=== PATIENT | male | born 1950 | race Caucasian/White ===

== ENCOUNTER 2018-06-07 11:14 | Inpatient (IN) | payer MEDICARE ==
[~2018-06-07] VITALS: Ht 180.3 cm; Wt 119.4 kg
[~2018-06-07 11:14] MED LIST: BISA10S PR; CARV25 PO; Carbidopa-Levo1 EAC2 PO; DOCU100 PO; Docusate Sodiu1 EACH PO; ESOM20 PO; ESZO1 PO; FURO40 PO; HYDACE5 PO; HYDCOR2.5C TOP; LAMO100 PO; LEVFLO500 PO; LEVSOD100 PO; LEVSOD200 PO; LISI5 PO; METHYLPHENIDATE40 MG PO; METO25ER PO; METR500 PO; MIRALAX17 GM PO; MIRT30 PO; Naproxen250 MG PO; Norco 10-325 T1 EACH PO; OMEPRAZOLE MAGN20 MG PO; SIMV10 PO; Solaraze100 GM TOP; TRAZ50 PO; Trazodone HCl300 MG PO; VARE1 PO; ZESTORETIC 20-121 EA PO
[2018-06-07] MEDS ORDERED: PRAV20 PO (11:26)
[2018-06-07] MEDS ORDERED: PREG100 PO (11:26)
[2018-06-07] MEDS ORDERED: POTCHL10ER PO (11:27)
[2018-06-07] MEDS ORDERED: SPIR25 PO (11:27)
[2018-06-07] MEDS ORDERED: ENTRESTO 24 MG1 EACH PO (11:27)
[2018-06-07 12:03] LABS: BASOPHILS ABSOLUTE AUTO 0.06 K/mm3 (0.00-0.23); BASOPHILS PERCENT AUTO 0 % (0-2); EOSINOPHILS PERCENT AUTO 1 % (0-6); Hemoglobin 18.4 g/dL (13.5-17.5); IMMATURE GRAN ABSOLUTE AUTO 0.09 K/mm3 (0.00-0.10); IMMATURE GRAN PERCENT AUTO 1 % (0-1); LYMPHOCYTES ABSOLUTE AUTO 0.42 K/mm3 (0.84-5.20); LYMPHOCYTES PERCENT AUTO 3 % (21-46); MONOCYTES ABSOLUTE AUTO 0.81 K/mm3 (0.16-1.47); MONOCYTES PERCENT AUTO 6 % (4-13); Mean Corpuscular HGB 30.5 pg (26.0-34.0); Mean Corpuscular HGB Conc 31.3 g/dL (31.5-36.5); Mean Corpuscular Volume 98 fL (80-100); Mean Platelet Volume 12.2 fL (9.1-12.4); NEUTROPHILS ABSOLUTE AUTO 12.34 K/mm3 (1.96-9.15); NEUTROPHILS PERCENT AUTO 89 % (41-73); Platelet Count 295 K/mm3 (150-400); RDW Coefficient Variation 14.9 % (11.7-14.2); RDW Standard Deviation 54.2 fL (35.1-46.3); Red Blood Cell Count 6.03 M/mm3 (4.30-5.90); White Blood Cell Count 13.92 K/mm3 (4.00-11.30)
[2018-06-07 12:13] LABS: Hematocrit 58.8 % (37.0-53.0)
[2018-06-07 12:25] LABS: Magnesium, Blood 2.5 mg/dL (1.6-2.4); Troponin I <0.015 ng/mL (0.000-0.040)
[2018-06-07 12:31] LABS: Alanine Aminotransfer (ALT/SGP 23 U/L (12-78); Albumin, Blood 4.5 g/dL (3.4-5.0); Albumin/Globulin Ratio 0.8 (0.8-1.8); Alk Phos 148 U/L (50-136); Anion Gap 11 mmol/L (6-16); Aspartate Aminotrans (AST/SGOT 30 U/L (12-37); Bilirubin, Total 0.8 mg/dL (0.1-1.0); Blood Urea Nitrogen 49 mg/dL (8-24); Bun/Creatinine Ratio 17.3 (12.0-20.0); CO2, Blood 25 mmol/L (21-32); Calcium, Blood 10.2 mg/dL (8.5-10.1); Chloride, Blood 98 mmol/L (98-108); Creatinine, Blood 2.83 mg/dL (0.60-1.20); Globulin, Blood 5.5 g/dL (2.2-4.0); Glomerular Filtration Rate 24 (60-); Glucose, Blood 148 mg/dL (70-99); Potassium, Blood 6.7 mmol/L (3.5-5.5); Sodium, Blood 134 mmol/L (136-145)
[2018-06-07] MEDS ORDERED: LO-DOSE ASPIRIN81 MG PO (12:49)
[2018-06-07] MEDS ORDERED: METHYLPHENIDATE PO (12:50)
[2018-06-07] MEDS ORDERED: GUAI600T33 PO (12:51)
[2018-06-07] MEDS ORDERED: Ferrous Sulfat325 MG PO (12:52)
[2018-06-07] MEDS ORDERED: CORTISONE60 GM TOP (12:57)
[2018-06-07 13:35] LABS: Bun/Creatinine Ratio 17.1 (12.0-20.0); Calcium, Blood 8.6 mg/dL (8.5-10.1); Creatinine, Blood 3.04 mg/dL (0.60-1.20); Potassium, Blood 5.4 mmol/L (3.5-5.5)
--- NOTE | 2018-06-07 17:00 | NUR ---
INITIAL ASSESSMENT PATIENT ARRIVED FROM ER AT 1632. PATIENT SPEECH IS GARBLED. PATIENT IS DISORIENTED AT TIMES. IN THE ROOM AND STATED PATIENT HAS BEEN DISORIENTED FOR 2-3 MONTHS. PATIENT HAS PRODUCTIVE COUGH, COUGHING UP THICK WHITE SECRETIONS THAT WERE SUCTIONED FROM MOUTH. PATIENT HAS WHEEZES THROUGHOUT ALL LUNG TOMAS. PATIENT IS SATTING 90% OR GREATER ON 2 L NC. PATIENT IN SINUS TACH. HR IN THE 90S-100S. HYPOTENSIVE WITH SBP IN THE 70S. PATIENT HAS NG TO LEFT NARE IN PLACE SET TO LOW INTERMITTENT SUCTION WITH LIGHT BROWN DRAINAGE. PATIENT ABDOMEN IS MODERATELY DISTENDED WITH TENDERNESS ON PALPATION BUT IS SOFT. PATIENT HAS AN UMBILICAL HERNIA. LYLES IN PLACE DRAINING MINIMAL CLOUDY YELLOW URINE. SKIN IS C/D/I BUT LOWER FEET ARE PALE AND COLD TO THE TOUCH. PATIENT HAS A 20 G TO THE L HAND, AND AN 18 G IN THE RIGHT UPPER ARM. NS IS INFUSING AT 50 ML/HR. BED LOW. CALL LIGHT IN REACH. WILL CONTINUE TO MONITOR.
[2018-06-07 17:04] LABS: Source, Urine Catheter
[2018-06-07 17:20] LABS: Appearance, Urine Hazy (Clear); Blood, Urine Neg (Neg); Color, Urine Yellow (P-Yellow); Glucose Qualitative, Urine Neg (Neg); Ketones, Urine Neg (Neg); Leukocyte Esterase, Urine Neg (Neg); Nitrite, Urine Neg (Neg); Protein, Urine 3+ (Neg); Specific Gravity, Urine 1.025 (1.003-1.022); Urobilinogen, Urine NORM (Normal)
--- NOTE | 2018-06-07 17:20 | NUR ---
CALLED DR. LOPES TO INFORM OF PATIENT'S AUDITORY WHEEZES AND SBP IN THE 60S TO 70S. ORDERS RECEIVED. WILL NOT GIVE NS BOLUS THAT IS ORDERED AND WILL BEGIN NS AT 50 MLS/ HOUR PER TELEPHONE ORDER. ALSO ORDERED TO CONSULT DEPOSITING MACHINE OPERATOR FOR HYPOTENSION. 1729: DR. CASILLAS CALLED AND INFORMED OF CONSULT. INFORMED THAT PATIENT HAS EF OF 33 AND CHF PER EX . INFORMED THAT PATIENT'S SBP 60S TO 70S. INFORMED THAT PATIENT HAS WHEEZES THROUGHOUT. INFORMED THAT DR. LOPES STATED NOT TO GET ANOTHER NS BOLUS RECEIVED 4 L IN ER AND TO INFUSE NS AT RATE OF 50 MLS/ HOUR. ORDERS OBTAINED. DR. CASILLAS STATED SHE WOULD BE IN SHORTLY.
[2018-06-07 17:30] LABS: Bilirubin, Urine 2+ (Neg)
[2018-06-07 17:32] LABS: Bacteria Not Seen /hpf; Red Blood Cells, Urine Not Seen /hpf (0-2); Squamous Epithelial Cells Rare /hpf (Few); White Blood Cells, Urine Not Seen /hpf (0-5)
[2018-06-07 17:49] LABS: PCO2 Arterial 47.6 mmHg (35-45); PO2 Arterial 70.7 mmHg (80-100); pH Blood Arterial 7.32 (7.35-7.45)
--- NOTE | 2018-06-07 19:00 | NUR ---
ASSUMED CARE PT IS ORIENTED TO SELF, PLACE, AND DATE; FOLLOWS COMMANDS. HOWEVER, IS QUITE CONFUSED. STATES THAT HE HAS BEEN CONFUSED FOR 3 MONTHS NOW. BLOOD PRESSURE IS NOT GREAT WILL NEED TO ADDRESS. PT IS ON NC 4L WITH SPO2>90.
--- NOTE | 2018-06-07 19:07 | NUR ---
SHIFT SUMMARY PATIENT IS RESTING IN BED. PATIENT CONTINUES TO BE CONFUSED AND DISORIENTED AT TIMES. PATIENT IS AFEBRILE. PATIENT IS SATTING 90% OR GREATER ON 2 L NC. NSR W HR IN THE 90S. SBP IS IN THE 80S. PATIENT HAS NG TUBE IN PLACE TO LIS WITH LIGHT BROWN DRAINAGE. ABDOMEN IS SOFT, BUT MODERATELY DISTENDED AND TENDER TO PALPATION. PATIENT HAS AN UMBILICAL HERNIA. LYLES IN PLACE DRAINING MINIMAL AMOUNT OF CLOUDY YELLOW URINE. DR CASILLAS IS AWARE. PATIENT HAS COOL AND PALE LOWER EXTREMITIES BUT SKIN IS OTHERWISE C/D/I. NS IS INFUSING AT 50 ML/HR. PATIENT HAS A PICC LINE PLACED TO THE RIGHT UPPER ARM. DR MENENDEZ HAS BEEN CONSULTED AND STATED HE WILL BE IN AM. REPORT HAS BEEN GIVEN TO ASSUMING HEALTHCARE SCIENCE SPECIALIST NURSE. NO SIGNS OF PAIN AT THIS TIME. BED LOW. CALL LIGHT IN REACH.
[2018-06-08 04:08] LABS: BASOPHILS ABSOLUTE AUTO 0.02 K/mm3 (0.00-0.23); BASOPHILS PERCENT AUTO 0 % (0-2); EOSINOPHILS ABSOLUTE AUTO 0.01 K/mm3 (0.00-0.68); EOSINOPHILS PERCENT AUTO 0 % (0-6); Hematocrit 39.8 % (37.0-53.0); Hemoglobin 12.4 g/dL (13.5-17.5); IMMATURE GRAN ABSOLUTE AUTO 0.04 K/mm3 (0.00-0.10); IMMATURE GRAN PERCENT AUTO 1 % (0-1); LYMPHOCYTES ABSOLUTE AUTO 0.45 K/mm3 (0.84-5.20); LYMPHOCYTES PERCENT AUTO 5 % (21-46); MONOCYTES PERCENT AUTO 2 % (4-13); Mean Corpuscular HGB 30.5 pg (26.0-34.0); Mean Corpuscular HGB Conc 31.2 g/dL (31.5-36.5); Mean Corpuscular Volume 98 fL (80-100); Mean Platelet Volume 12.5 fL (9.1-12.4); NEUTROPHILS ABSOLUTE AUTO 7.97 K/mm3 (1.96-9.15); NEUTROPHILS PERCENT AUTO 92 % (41-73); Platelet Count 158 K/mm3 (150-400); RDW Coefficient Variation 14.9 % (11.7-14.2); RDW Standard Deviation 53.2 fL (35.1-46.3); Red Blood Cell Count 4.07 M/mm3 (4.30-5.90); White Blood Cell Count 8.69 K/mm3 (4.00-11.30)
[2018-06-08 04:23] LABS: Bun/Creatinine Ratio 21.7 (12.0-20.0); Calcium, Blood 7.2 mg/dL (8.5-10.1); Creatinine, Blood 2.53 mg/dL (0.60-1.20); Potassium, Blood 4.6 mmol/L (3.5-5.5)
--- NOTE | 2018-06-08 06:54 | NUR ---
SHIFT SUMMARY PT IS ON 4LNC AND SATTING >90%. PT IS ORIENTED TO SELF, PLACE, AND DATE BUT IS DEFINITELY CONFUSED. EXWIADELAIDA SAYS THAT PT HAS BEEN CONFUSED FOR 3 MONTHS. PT WAS STARTED ON LEVOPHED OVERNIGHT TO MAINTAIN MAP>60 AND IS CURRENTLY AT 1MCG/MIN. NS X 2 TKO. PT HAD 350ML BROWN DRAINAGE FROM NG. PT CONFINUELY COMPLAINS ABOUT HUNGER AND THIRST.
--- NOTE | 2018-06-08 08:53 | NUR ---
INITIAL ASSESSMENT PATIENT IS LAYING IN BED. PATIENT IS LETHARGIC, AND RESPONDS TO VERBAL STIMULI; SLEEPING ON AND OFF BETWEEN QUESTIONS. SPEECH IS GARBLED. CONTINUES TO ASK FOR FOOD AND WATER. PATIENT IS AFEBRILE. PATIENT IS SATTING 90% OR GREATER ON 4 L NC. PATIENT WAS GIVEN A NEB TREATMENT BY RT THIS AM, BUT CONTINUED TO HAVE WHEEZES T/O LUNG TOMAS. DR CASILLAS INFORMED. NSR, SINUS TACH W HR IN THE 90S-LOW 100S. BP IS STABLE AT THIS TIME. ABDOMEN IS MODERATELY DISTENDED, WITH SOME TENDERNESS BUT IS SOFT ON PALPATION. PATIENT HAS AN UMBILICAL HERNIA. NG TUBE TO LEFT NARE IN PLACE SET TO LIS WITH LIGHT BROWN DRAINAGE. LYLES IN PLACE DRAINING CLEAR YELLOW URINE. APPEARS TO HAVE ADEQUATE URINE OUTPUT AT THIS TIME. SKIN IS C/D/I BUT HAS COOL, DUSKY LOWER EXTREMITIES. NS INFUSING TKO X2. LEVOPHED ON SB. PATIENT RECEIVING ANTIBIOTICS. BED LOW, CALL LIGHT IN REACH. WILL CONTINUE TO MONITOR.
--- NOTE | 2018-06-08 11:21 | NUR ---
DR. MENENDEZ IN ROOM TO SEE PATIENT. STATED TO CONTINUE TO MONITOR. STATES THAT IF PATIENT HAS BM THEN DC NG TUBE AND LET HIM KNOW. OTHERWISE, HE WILL REASSESS IN AM.
--- NOTE | 2018-06-08 12:16 | NUR ---
PATIENT SLEEPING IN BED. NO SIGNS OF PAIN. AFEBRILE. VSS. ABLE TO TITRATE O2 TO 3 L NC FROM 4. PATIENT SATTING 90% OR GREATER ON THIS. PATIENT RECEIVED BED BATH. NO OTHER ACUTE CHANGES TO NOTE ON AT THIS TIME. BED LOW, CALL LIGHT IN REACH. WILL CONTINUE TO MONITOR.
--- NOTE | 2018-06-08 17:14 | NUR ---
PATIENT BECAME VERY AGITATED DURING ASSESSMENT. PATIENT WAS BEING VERBALLY ABUSIVE TO STAFF AND CONTINUED TO ASK FOR WATER DURING ASSESSMENT DESPITE RECEIVING MANY WATER SWABS PRIOR TO ASSESSMENT ATTEMPT. PATIENT WAS TOLD WATER SWABS WOULD BE PROVIDED AGAIN AFTER ASSESSMENT. PATIENT CONTINUED TO SHOW AGITATION AND THREATENED TO REMOVE TUBES IF HE DID NOT GET WATER. PATIENT STATED HE WANTED TO LEAVE AMA AND WANTED HIS EX TO BE CALLED. PATIENT EX WAS CONTACTED AND INFORMED OF PATIENT DESIRE TO LEAVE AMA AND REQUESTING FOR HER TO COME AND PICK HIM UP. EX STATED SHE WOULD BE ON HER WAY NOW. PATIENT INFORMED THAT EX ON WAY. DR LOPES CONTACTED AND INFORMED OF PATIENT WANTING TO LEAVE AMA. STATED SHE WOULD ORDER PRN ATIVAN. PATIENT OFFERED ATIVAN. PATIENT REFUSED AND CONTINUES TO CURSE AT STAFF AND CALL NAMES. WAITING FOR TO ARRIVE.
--- NOTE | 2018-06-08 18:31 | NUR ---
SHIFT SUMMARY PATIENT RESTING QUIETLY IN BED AT THIS TIME. EX IS AT THE BEDSIDE. PATIENT HAS EXPIRATORY WHEEZES T/O. PATIENT IS SATTING 90% OR GREATER ON 3 L NC. PATIENT CONTINUES TO BE IN SINUS RHYTHM/SINUS TACH W HR IN THE 90S-LOW 100S. BP IS STABLE. ABDOMEN IS DISTENDED, BUT SOFT TO PALPATION. PATIENT HAS UMBILICAL HERNIA. NG TUBE TO L NARE IN PLACE SET TO LIS, WITH LIGHT BROWN DRAINAGE. LYLES IN PLACE DRAINING DARK YELLOW URINE WITH SOME SEDIMENT. PATIENT LOWER EXTREMITIES ARE PALE, COOL, AND DUSKY. PATIENT RECEIVED BED BATH TODAY. NS TKO. LEVOPHED HAS BEEN OFF SINCE THE AM. PATIENT MOSTLY CALM, AND COOPERATIVE AT THIS TIME. EX CAME IN AND SPOKE TO PATIENT, WAS VERY AGITATED AND ANGRY. ABLE TO CALM DOWN SOME. PATIENT AGREED TO TAKE PRN ATIVAN. PATIENT REQUESTED TO BE ABLE TO HAVE ICE CUBES IF HE WAS GOING TO STAY IN HOSPITAL. DR. MENENDEZ WAS CONTACTED AND STATED ICE CUBES WERE OKAY IN SMALL QUANTITIES. PATIENT AND EX INFORMED OF DR. MENENDEZ'S REPLY, AND EX WAS INFORMED TO MINIMIZE AMOUNT OF INTAKE IMPORTANT IN ALLOWING PATIENT TO GET BETTER. WILL REPORT TO THE [facility] BAR FINISH OPERATOR NURSE. HAS NO OTHER COMPLAINTS AT THIS TIME. BED LOW, CALL LIGHT IN REACH.
--- NOTE | 2018-06-08 20:26 | NUR ---
CARE ASSUMED REPORT RECEIVED, CARE ASSUMED AT 1900. PT RESTING QUIETLY WITH EX-, MONALISA AT BEDSIDE. PT AROUSES EASILY FOR ASSESSMENT. PT CALM, COOPERATIVE. REQUESTING MULTIPLE SWABS AND ICE CHIPS. PROVIDED AND PT EDUCATED. PT AGREEABLE. DISCUSSED PLAN FOR EVENING WITH PATIENT AND MONALISA. MONALISA CONCERNED ABOUT LEAVING PATIENT FOR EVENING AND DISCUSSES WITH PATIENT. PT AGREES FOR MONALISA TO GO HOME AND PT STATES, "I WILL DO WAHT I NEED TO DO." PT REQUESTING ATIVAN, BUT SITTING WITH HIS EYES CLOSED AND QUICKLY FALLS ASLEEP BETWEEN ASSESSMENTS. EDUCATED PT AND STATED IT WOULD BE PROVIDED IF PT STARTS TO FEEL MORE AGITATED BUT AT THIS POINT APPEARS TO BE RESTING QUIETLY. PT AGREEABLE. WILL CONTINUE TO CLOSELY MONITOR. VITALS STABLE, SEE FLOWSHEET. SEE SHIFT ASSESSMENT. PT AGREES TO CALL FOR NEEDS. BED IN LOWEST POSITION, ALARM IN PLACE.
--- NOTE | 2018-06-08 20:44 | NUR ---
AGITATION PT SITTING UP IN BED, RESTLESS, CALLS OUT REQUESTING ATIVAN. PT CALM, COOPERATIVE AND APPRECIATIVE UPON ADMINISTRATION.
--- NOTE | 2018-06-08 22:33 | NUR ---
NEURO STATUS PT CONTINUES TO BE ORIENTED, BUT VERY FORGETFUL. CALLING OUT INTO HALLWAY, STATES, "I DON'T KNOW WHAT I'M DOING." YET IS ORIENTED TO SELF, PLACE, DATE/TIME AND EVENT. REQUESTING ICE REPEATEDLY, PROVIDED IN SMALL AMOUNTS. PER H&P, PT HAS SOME CONFUSION AT BASELINE. WILL CONTINUE TO MONITOR AND REDIRECT.
[2018-06-09 03:34] LABS: BASOPHILS ABSOLUTE AUTO 0.01 K/mm3 (0.00-0.23); BASOPHILS PERCENT AUTO 0 % (0-2); EOSINOPHILS ABSOLUTE AUTO 0.01 K/mm3 (0.00-0.68); EOSINOPHILS PERCENT AUTO 0 % (0-6); Hematocrit 44.4 % (37.0-53.0); Hemoglobin 13.9 g/dL (13.5-17.5); IMMATURE GRAN ABSOLUTE AUTO 0.05 K/mm3 (0.00-0.10); IMMATURE GRAN PERCENT AUTO 1 % (0-1); LYMPHOCYTES ABSOLUTE AUTO 0.77 K/mm3 (0.84-5.20); LYMPHOCYTES PERCENT AUTO 9 % (21-46); MONOCYTES ABSOLUTE AUTO 0.82 K/mm3 (0.16-1.47); MONOCYTES PERCENT AUTO 9 % (4-13); Mean Corpuscular HGB 30.5 pg (26.0-34.0); Mean Corpuscular HGB Conc 31.3 g/dL (31.5-36.5); Mean Corpuscular Volume 97 fL (80-100); NEUTROPHILS ABSOLUTE AUTO 7.15 K/mm3 (1.96-9.15); NEUTROPHILS PERCENT AUTO 81 % (41-73); Platelet Count 180 K/mm3 (150-400); RDW Coefficient Variation 14.8 % (11.7-14.2); RDW Standard Deviation 53.5 fL (35.1-46.3); Red Blood Cell Count 4.56 M/mm3 (4.30-5.90); White Blood Cell Count 8.81 K/mm3 (4.00-11.30)
[2018-06-09 03:50] LABS: Anion Gap 4 mmol/L (6-16); Blood Urea Nitrogen 42 mg/dL (8-24); Bun/Creatinine Ratio 22.2 (12.0-20.0); CO2, Blood 29 mmol/L (21-32); Calcium, Blood 8.5 mg/dL (8.5-10.1); Chloride, Blood 113 mmol/L (98-108); Creatinine, Blood 1.89 mg/dL (0.60-1.20); Glomerular Filtration Rate 38 (60-); Glucose, Blood 103 mg/dL (70-99); Phosphorus, Blood 2.8 mg/dL (2.5-4.9); Potassium, Blood 4.6 mmol/L (3.5-5.5); Sodium, Blood 146 mmol/L (136-145)
--- NOTE | 2018-06-09 06:16 | NUR ---
SUMMARY SINCE PREVIOUS NOTE, PT HAS RESTED INTERMITTENTLY, AROUSING EASILY FOR REASSESSMENTS. REMAINS ORIENTED, BUT FORGETFUL ABOUT RESTRICTIONS OF BOWEL OBSTRUCTION. PT ON TWO OCCASIONS HAS GONE FROM RESTING QUIETLY TO RAPIDLY PULLING AT CORDS/LINES, RIPPING OF CORDS AND IS PRISON OUT OF BED, YELLING "I AM GOING." PT REDIRECTABLE BACK TO BED, BUT CONTINUES TO YELL, "WATER, WATER." PROVIDED WITH SWABS/ICE CHIPS. MEDICATED WITH ATIVAN, SEE EMAR. VITALS STABLE, SLIGHT HYPERTENSION NOTED. HYDRALAZINE PRN ORDER RECEIVED FROM DR. RIVERA. PT HAS REQUIRED 3 LPM NASAL CANNULA TO MAINTAIN 02 SAT IN 90'S. NG REMAINS TO LIS WITH BROWN OUTPUT, SEE I/O. LYLES PATENT, DRAINING CLEAR, YELLOW URINE THROUGHOUT NIGHT. SON IN THIS MORNING, PROVIDED WITH UPDATE. PT MINIMALLY INTERACTIVE WITH SON, REPEATEDLY ASKING FOR WATER. SWABS AND ICE CHIPS PROVIDED.
--- NOTE | 2018-06-09 07:04 | NUR ---
REPORT TO KARTHIK HERNANDEZ TO ASSUME CARE
--- NOTE | 2018-06-09 10:18 | NUR ---
NG TUBE DR MENENDEZ HERE TO SEE PT. GAVE VERBAL ORDER TO CLAMP NG TUBE X6 HOURS. RETURN TO SUCTION IF PT BECOMES NAUSEIOUS OR AT 1500 TO CHECK RETAINED STOMACH VOLUME. CONTINUE POT.
--- NOTE | 2018-06-09 12:16 | NUR ---
ELEVATED BP CALLED D Danisha LOPES D/T PT ELEVATED BP. HYDRALAZINE 10MG ALREADY GIVEN X1. ORDER RECEIVED FOR LOPRESSOR IV. CONTINUE POT.
--- NOTE | 2018-06-09 13:56 | NUR ---
Mr. Macdonald was calling out in room "I want to go home!" I entered room in attempt to calm. He was quite fidgety and confused. He was unable to hold conversation or accept comfort/assurance. I will remain available.
--- NOTE | 2018-06-09 15:08 | NUR ---
NG TUBE RESUMED SUCTION AT [address] BALL ORDER. NG TUBE HAD BEEN LOCKED FOR 6 HOURS. SCANT OUTPT. WHAT DID COME THROUGH THE TUBE WAS COLORLESS. LEFT ON LIS. CONTINUE POT.
--- NOTE | 2018-06-09 17:20 | NUR ---
REMOVED NG TUBE ORDER RECEIVED FROM DR MARTINEZ TO REMOVE NG TUBE. CALLED DR LOPES TO REQUEST ORDERS FOR PT ROUTINE BP MEDICATIONS. CONFIRMED WITH PAHRMACY THAT WE CARRY THE ENTRESTO. WE DO. MESSAGE LEFT FOR DR VALLADARES, DISTRICT CLAIMS MANAGER, FOR DIET CLARIFICATION. CONTINUE POT.
--- NOTE | 2018-06-09 18:00 | NUR ---
RESTRAINT NOTE PT WAS MANAGED WELL BY HIS /SON. HE DOES NOT REDIRECT WELL. THEY LEFT AND PT STARTED TO PULL AT NG TUBE, OXYGEN AND PICC LINE. TRYING TO CLIMB OOB. DID NOT REDIRECT IN ANY WAY. OBSESSIVE BEHAVIOR FOR WATER. TAB ALARM HAD BEEN PLACED AROUND LUNCH TIME. ORDER RECEIVED TO PULL NG TUBE. NG TUB REMOVED. PT TOLERATED WELL. TOOK 2 NURSES TO REMOVE D/T PT NOT FOLLOWING DIRECTIONS. GAVE PT A GLASS OF WATER. HE GULPED IT DOWN AND START YELLING FOR WATER. HE THEN STARTED BELCHING AND HICCUPING. TALKED WITH PT AND TRIED TO CONVINVE HIM TO PACE HIMSELF. THOUGHT HE UNDERSTOOD. FOUND HIM SITTING BETWEEN THE RAILS AT THE FOOT OF THE BED, TAB ALARM HAD BEEN REMOVED, PULLING ON HIS PICC LINE BECAUSE IT WAS PREVENTING HIM FROM GETTING OOB D/T ZOSYN INFUSING. TRIED TO GET HIM TO MOVE BACK IN BED. HE REFUSED AND STARTED THREATENING AND YELLING. THREE NURSES THEN HELPED HIM RETURN TO BED AND PLACED A PROPERLY SIZED ESTELLA. ATIVAN 0.5MG GIVEN IV X1. DR LOPES CALLED FOR ESTELLA ORDER. PICC LINE SAFE AND FUNCTIONING WELL. CONTINUE POT.
--- NOTE | 2018-06-09 18:56 | NUR ---
AGGITATION PT STARTED TO ESCALATE AFTER SEEING DR PETERSON. STARTED GRABBING AND WRIPPING WIRES OFF. TRIED TO PULL THE PICC LINE AGAIN. APPLIED BILATERAL SOFT WRIST RESTRAINTS AND GAVE ADDITIONAL ATIVAN. CALLED PT MONALISA AGAIN. SHE IS SENDING THEIR SON OVER. CONTINUE POT.,
--- NOTE | 2018-06-09 22:00 | NUR ---
CARE ASSUMED REPORT RECEIVED, CARE ASSUMED AT 1900. AT CHANGE OF SHIFT PT AGITATED, YELLING OUT, ATTEMPTING TO GET OUT OF BED REPEATEDLY. UNABLE TO REDIRECT. BILAT SOFT WRISTS AND VEST RESTRAINTS IN PLACE. DURING REPORT, PT PULLED OUT OF SOFT WRIST RESTRAINTS. TOUGH CUFFS PLACED. PT'S SON CALLED BY DAY SHIFT RN AND AT BEDSIDE. EDUCATED AND AGREEABLE TO PLAN. PT MEDICATED WITH HALDOL. PT REQUESTING WATER REPEATEDLY, GIVEN SIPS OF WATER PER CLEAR LIQUID DIET ORDERS. PT ORIENTED TO SELF AND LOCATION BUT EXTREMELY FORGETFUL, PART OF WHICH IS CAUSING THE AGITATION. PT CALMED DOWN AFTER HALDOL ADMINISTRATION AND REQUESTED WRIST RESTRAINTS TO BE TAKEN OFF. REMOVED TOUGH CUFFS AND LEFT VEST IN PLACE. PT TOLERATING WELL AND FOLLOWING DIRECTIONS. CONTINUES TO BE FORGETFUL BUT IS REDIRECTIBLE. VITALS STABLE, SEE FLOWSHEET. SEE SHIFT ASSESSMENT.
--- NOTE | 2018-06-10 | NUR ---
UPDATE SINCE PREVIOUS NOTE, PT HAS REQUIRED NURSE AT BEDSIDE THE MAJORITY OF THE TIME TO KEEP OXYGEN PROBE, HEART MONITOR, AND IV'S IN PLACE. PT MEDICATED WITH ATIVAN. DR. RIVERA UPDATED AND AGREEABLE TO HALDOL PRN ORDER. HALDOL ADMIN. VITALS CONTINUE TO BE STABLE. PT CONTINUES TO BE ABLE TO STATE LOCATION, NAME AND FOLLOW DIRECTIONS BUT IS EXTREMELY FORGETFUL, YELLS OUT, ATTEMPTS TO GET OUT OF BED AND PULL ALL EQUIPMENT OFF. PT REDIRECTIBLE BUT ONLY REMEMBERS INSTRUCTIONS FOR MAXIMUM 30 SECONDS. REMAINS IN ESTELLA VEST.
--- NOTE | 2018-06-10 03:00 | NUR ---
UPDATE PT HAS CONTINUED WITH PREVIOUS TREND OF AGITATION, ATTEMPTING TO GET OUT OF BED, PULLING AT LINES/TUBES. STAFF AT BEDSIDE TO PREVENT PATIENT HARM MAJORITY OF TIME SINCE PREVIOUS NOTE. PT ALSO NOTED TO BE SWEATY AND EVEN LESS REDIRECTIBLE THAN PRIOR. DR. RIVERA UPDATED. NEW ORDER FOR PRECEDEX. PRECEDEX INITIATED. VITALS CONTINUE TO BE STABLE.
[2018-06-10 04:35] LABS: Bun/Creatinine Ratio 23.5 (12.0-20.0); Calcium, Blood 9.1 mg/dL (8.5-10.1); Creatinine, Blood 1.53 mg/dL (0.60-1.20); Potassium, Blood 4.6 mmol/L (3.5-5.5)
--- NOTE | 2018-06-10 05:00 | NUR ---
UPDATE PT HAS PROGRESSIVELY BECOME MORE AGITATED, YELLING, PULLING EQUIPMENT OFF, PULLING AT PICC LINE, NEARLY COMPLETELY OUT OF ESTELLA ON MULTIPLE OCCASIONS. WHEN ATTEMPTING TO REDIRECT PT ESCALATES AND CONTINUES WITH ACTIVITIES. REQUIRES PHYSICAL RESTRAINT OF HANDS TO PREVENT PATIENT HARM. BILAT WRIST RESTRAINTS PLACED. TOUGH CUFFS PLACED PT HAD BEEN ABLE TO GET OUT OF SOFT RESTRAINTS PREVIOUSLY IN THE NIGHT.
--- NOTE | 2018-06-10 06:45 | NUR ---
FAMILY UPDATED PT'S SON TO BEDSIDE FOR UPDATE ON PT. UPDATE PROVIDED AND PT'S SON AGREEABLE TO PLAN AND PLANS TO UPDATE PT'S SIGNFICANT CAROL. MAYA
--- NOTE | 2018-06-10 07:10 | NUR ---
REPORT TO KARTHIK GARCIA TO ASSUME CARE
--- NOTE | 2018-06-10 07:18 | NUR ---
SUMMARY SINCE PREVIOUS NOTE, PT REMAINED AGITATED AND HAD LEGS COMPLETELY OUT OF BED, PUSHING ON SIDE RAIL WITH LEGS, PULLING LYLES CATHETER WITH TOES, AND YELLING OUT. UNABLE TO REDIRECT. MEDICATED WITH HALDOL AND PT HAS SLEPT SINCE. OTHERWISE, ASSESSMENTS UNCHANGED. GOOD URINE OUTPUT THROUGH LYLES. NO BOWEL MOVEMENT NOTED, BOWEL SOUNDS REMAIN HYPOACTIVE. PT HAS NOT ASKED FOR WATER SINCE APPROX 2200. VITALS STABLE, DID REQUIRE 1 LPM NASAL CANNULA WHEN SLEEPING THIS MORNING.
--- NOTE | 2018-06-10 08:57 | NUR ---
ASSUMED CARE: REPORT RECEIVED FROM GIDEON Raman RN. ASSUMED CARE OF THIS PT AT APPROX 0700. ON ASSESSMENT, THE PT IS RESTING QUIETLY. ESTELLA VEST & BILAT TOUGH CUFF LOCKED WRIST RESTRAINTS IN PLACE. PRECEDEX IS INFUSING FOR CONTINUED AGITATION WHEN PT AWAKE. ONCE AWAKE, THE PT IS PULLING AT RESTRAINTS & AGITATED. HE ASKS "WHO TIED ME UP" & "CAN YOU UNTIE ME." SAFETY REASONS FOR RESTRAINTS ARE DISCUSSED & PT IS AGREEABLE TO THIS RATIONALE FOR A TIME BEFORE BECOMING FORGETFUL & ASKING THE SAME QUESTIONS AGAIN. HE IS ORIENTED TO HIMSELF & FOLLOWING COMMANDS ONLY. CIWA CHARTED. WILL CONTINUE TO MONITOR & UPDATE NEEDED.
--- NOTE | 2018-06-10 10:30 | NUR ---
DR. LOPES: PROVIDER AT BEDSIDE TO SEE PT. SHE STS SHE WILL ORDER NEBS PRN THE PT HAS AUDIBLE WHEEZING. PT STS HE SMOKES APPROX 1 PPD. NO OTHER ORDERS AT THIS TIME. WILL CONTINUE TO MONITOR & UPDATE NEEDED.
--- NOTE | 2018-06-10 18:49 | NUR ---
SHIFT SUMMARY: NO ACUTE CHANGES SINCE AM ASSESSMENT. PT REMAINS FORGETFUL & CONFUSED, IS A&O TO SELF, FAMILY & FOLLOWING COMMANDS. FAMILY STS THAT HIS FORGETFULNESS HAS BEEN INCREASING FOR 2-3 MONTHS & THAT THEY HAVE BEEN CONCERNED W/ HIS ABILITY TO CARE FOR HIMSELF AT HOME. LS HAVE OCCASIONAL EXP WHEEZING, PT DENIES NEED FOR NEBS TXs. O2 SATS DROP TO 88% WHEN PT SLEEPING/SNORING, 2L NC AT THAT TIME. MONITOR SHOWS SR-SB, HR 50-80s. INCREASED W/ AGITATION. BP ALSO INCREASED W/ AGITATION. IMPROVED SINCE THIS AM. ABD REMAINS DISTENDED, SOFT TO PALPATION. BT HYPOACTIVE x4, PT TOLERATING PO INTAKE OF CLEAR LIQ WELL W/ NO C/O NAUSEA. LYLES PATENT/DRAINING DARK YELLOW URINE. WILL CONTINUE TO MONITOR & REPORT OFF TO ONCOMING RN.
--- NOTE | 2018-06-10 19:00 | NUR ---
ASSUMED CARE ASSUMED CARE OF PATIENT. SLEEPING INTERMITTENTLY. ROUSES EASILY TO ANY STIMULI. ORIENTED TO SELF ONLY AT THIS TIME. FOLLOWS SIMPLE COMMANDS. SLOW VERBAL RESPONSE NOTED. CONFUSED CONVERSATION. SOUMYA, 3MM. ESTELLA VEST IN PLACE. PT WILL OCCASIONALLY PULL OFF O2 TUBING AND O2 SAT PROBE. PRECEEX GTT INFUSING @ 0.7MCG/KG/HR. DENIES C/O PAIN OR NAUSEA. REPOSITIONS SELF IN BED AND OCCASIONALLY THROWS LEGS OVER SIDE OF BED. BED ALARM IS ON. MONITOR SHOWS SB-SR, RATE 50-70s. HYPERTENSION NOTED. 02 @ 2L WITH SATS 96-97%. LYLES PATENT AND DRAINING CLEAR YELLOW URINE. TOLERATING CLEAR LIQUID DIET. ABD IS DISTENDED, BUT SOFT AND NON-TENDER. UMBILICAL HERNIA NOTED. PAS TO BLE. SEE SHIFT ASSESSMENT FOR FULL ASSESSMENT.
--- NOTE | 2018-06-10 19:54 | NUR ---
HYPERTENSION/AGITATION PT WITH INCREASED AGITATION AND RESTLESSNESS. ATTEMPTING TO CLIMB OUT OF BED. PULLING ON LYLES CATHETER AND PICC LINE. ESTELLA VEST REMAINS ON. BILATERAL SOFT WRIST RESTRAINT ON AT THIS TIME. MEDICATED WITH HALDOL 3MG IV AT THIS TIME. BP 181/104- MEDICATED WITH HYDRALAZINE 10MG IV.
[2018-06-11 04:25] LABS: BASOPHILS ABSOLUTE AUTO 0.01 K/mm3 (0.00-0.23); BASOPHILS PERCENT AUTO 0 % (0-2); EOSINOPHILS ABSOLUTE AUTO 0.01 K/mm3 (0.00-0.68); EOSINOPHILS PERCENT AUTO 0 % (0-6); Hematocrit 44.9 % (37.0-53.0); Hemoglobin 14.4 g/dL (13.5-17.5); IMMATURE GRAN ABSOLUTE AUTO 0.06 K/mm3 (0.00-0.10); IMMATURE GRAN PERCENT AUTO 1 % (0-1); LYMPHOCYTES PERCENT AUTO 9 % (21-46); MONOCYTES ABSOLUTE AUTO 0.37 K/mm3 (0.16-1.47); MONOCYTES PERCENT AUTO 5 % (4-13); Mean Corpuscular HGB 30.1 pg (26.0-34.0); Mean Corpuscular HGB Conc 32.1 g/dL (31.5-36.5); NEUTROPHILS ABSOLUTE AUTO 6.59 K/mm3 (1.96-9.15); NEUTROPHILS PERCENT AUTO 85 % (41-73); Platelet Count 173 K/mm3 (150-400); RDW Standard Deviation 48.4 fL (35.1-46.3); Red Blood Cell Count 4.78 M/mm3 (4.30-5.90); White Blood Cell Count 7.74 K/mm3 (4.00-11.30)
[2018-06-11 04:27] LABS: Mean Corpuscular Volume 94 fL (80-100)
[2018-06-11 04:41] LABS: Bun/Creatinine Ratio 25.4 (12.0-20.0); Calcium, Blood 8.9 mg/dL (8.5-10.1); Creatinine, Blood 1.3 mg/dL (0.60-1.20); Potassium, Blood 4.5 mmol/L (3.5-5.5)
--- NOTE | 2018-06-11 06:30 | NUR ---
SHIFT SUMMARY NO ACUTE CHANGES DURING NOC. PRECEDEX INFUSED BETWEEN 0.7-1.2MCG/KG/HR DURING SHIFT- NOW INFUSING @ 0.9MCG/KG/HR. MEDICATED WITH HALDOL 3MG IV X 2 DOSES, ATIVAN 1MG IV X 1 DOSE, AND LIBRIUM 50MG PO X 1 DOSE FOR INCREASED AGITATION AND RESTLESSNESS. CIWA 14-15. PT CONTINUES TO ATTEMPT TO CLIMB OUT OF BED AND PULLS ON LYLES CATHETER AND IV LINES- ESTELLA VEST AND BILATERAL SOFT WRIST RESTRAINTS REMAIN IN PLACE. ORIENTED TO SELF AND FOLLOWING DIRECTIONS AND OCCASIONALLY TO THE FACT THAT HE IS IN THE HOSPITAL. DOESN'T REMEMBER REASON FOR HOSPITALIZATION. MEDICATED WITH HYDRALAZINE 10MG IV X 2 FOR HYPERTENSION WITH ADEQUATE RESULTS. TOLERATING CLEAR LIQUID DIET. LYLES PATENT AND DRAINING CLEAR YELLOW URINE. WILL REPORT TO DAY SHIFT RN WHEN AVAILABLE.
--- NOTE | 2018-06-11 07:30 | NUR ---
ASSUMED CARE PT AWAKENS TO VERBAL STIMULI. PT. FOLLOWING COMMANDS AT THIS TIME. ANSWERS SOME QUESTIONS. PT. REMAINS IN BILAT WRIST RESTRAINTS AND VEST FOR SAFETY. PT. PROVIDED WITH WATER THIS MORNING AND TOLERATED WELL. PT. CURRENTLY ON FULL LIQUID DIET. PT. DENIES ANY ABD PAIN THIS AM. PT. ON 1LNC. PT. HAS LYLES IN PLACE DRAINING OT GRAVITY. LANDON.
--- NOTE | 2018-06-11 12:30 | NUR ---
PT CONTINUES TO BEND DOWN WITH RESTRAINTS IN PLACE AND REMOVE OXYGEN AND SPO2 PROBE. DR. PETERSON AWARE. OKAY TO SPOT CHECK PT. PT. VSS.
--- NOTE | 2018-06-11 14:04 | NUR ---
PT VERY DROWSY T/O DAY HOWEVER PT AWAKENS EASILY TO VERBAL STIMULI. WHEN PT SLEEPING HIS BP READS HYPOTENSIVE HOWEVER WHEN AWAKENED BP INCREASES. PRECEDEX PLACED ON SB AT THIS TIME.
--- NOTE | 2018-06-11 14:57 | NUR ---
UP TO BEDSIDE CHAIR PT. AT BEDSIDE, PRECEDEX GTT REMAINS OFF. PT. ASSISTED TO SIT AT EDGE OF BED. VERY WEAK BUT ABLE TO MOVE SELF TO EDGE OF BED. PT ASSISTED WITH GAIT BELT AND 2 STAFF TO STAND AND TRANSFER TO BEDSIDE CHAIR. BILAT WRIST RESTRAINTS REMOVED, PT CALM AND COOPERATIVE AT THIS TIME. HOWEVER OCCASIONALLY IMPULSIVE. PT. REMAINS IN ESTELLA VEST FOR SAFETY IN BEDSIDE CHAIR. CALL LIGHT IN REACH
--- NOTE | 2018-06-11 15:11 | NUR ---
PT. REMAINS UP IN BEDSIDE CHAIR. TEARFUL AT TIMES ASKING, "WHAT HAPPENED TO ME". PT. REMAINS AT BEDSIDE. PT CONTINUES TO HAVE SOME EXP. WHEEZES WITH EXCERTION. PT. VSS.
--- NOTE | 2018-06-11 18:03 | NUR ---
SHIFT SUMMARY PT. ALERT AND FOLLOWING COMMANDS AT THIS TIME. ORIENTED TO LOCATION. PRECEDEX GTT DC'D TODAY ALONG WITH RESTRAINTS. PT. COOPERATIVE AND FOLLOWING COMMANDS.PT. REMAINS ON CLEAR LIQUID DIET AT THIS TIME. PT. WAS PASSING FLATUS TODAY BUT NO BM. PT. VSS T/O SHIFT. PT SOB WITH EXERTION AND PLACED ON O2 AFTER MOVING HOWEVER SPO2 DOES NOT DROP BELOW 94% WITH ACTIVITY. PT. REPORTS THIS IS NOT NEW TO PT. PT. LASIX RESTARTED THI SHIFT TO HOME DOSE. PT UP TO CHAIR WITH GAIT BELT AND 2 PERSON ASSIST. PT STATUS UPDATED TO MEDICAL FLOOR WITH TELE.
--- NOTE | 2018-06-11 19:31 | NUR ---
ASSUMED CARE OF PT. PT ALERT AND SOMEWHAT CONFUSED. PT ABLE TO RECALL HIS NAME AND , LOCATION, AND MONTH BUT WAS CONFUSED ON THE YEAR. PT WITHDRAWN AND ASKING FOR HIS SLEEPING MEDICATION, DOOR SHUT, AND CURTAIN CLOSED. TAB ALARM IN PLACE DUE TO PT'S REPORTED IMPULSIVENESS. AUDIBLE WHEEZES HEARD. PT ON 1.5L NC AND TACHYPNEIC. PT REMINDED TO BREATHE THROUGH HIS NOSE. ABDOMEN SOFT/NON TENDER WITH MODERATE DISTENTION AND UMBILICAL HERNIA. BOWEL SOUNDS HEARD IN ALL 4 QUADRANTS. PT COMPLAINING OF HEART BURN. SEE FULL SHIFT ASSESSMENT.
--- NOTE | 2018-06-12 04:41 | NUR ---
PT TRANSFERRED FROM ICU 5 TO MEDICAL FLOOR ROOM 345 REPORT GIVEN TO SULLY ANGELES.
--- NOTE | 2018-06-12 05:16 | NUR ---
VSS, AFEBRILE, PT TRANSFERED TO THIS UNIT VIA BED, PT SLEEPING AT THIS TIME, LYLES PATENT AND DRAINING, NO COMPLAINTS. NO SIGNIFICANT CHANGES NOTED IN REPORT FROM KARTHIK SALINAS IN ICU. WILL REPORT TO ON-COMING SHIFT.
[2018-06-12 08:22] LABS: BASOPHILS ABSOLUTE AUTO 0.01 K/mm3 (0.00-0.23); BASOPHILS PERCENT AUTO 0 % (0-2); EOSINOPHILS ABSOLUTE AUTO 0.03 K/mm3 (0.00-0.68); EOSINOPHILS PERCENT AUTO 0 % (0-6); Hematocrit 48.3 % (37.0-53.0); Hemoglobin 15.6 g/dL (13.5-17.5); IMMATURE GRAN ABSOLUTE AUTO 0.16 K/mm3 (0.00-0.10); IMMATURE GRAN PERCENT AUTO 2 % (0-1); LYMPHOCYTES ABSOLUTE AUTO 1.25 K/mm3 (0.84-5.20); LYMPHOCYTES PERCENT AUTO 13 % (21-46); MONOCYTES ABSOLUTE AUTO 0.82 K/mm3 (0.16-1.47); MONOCYTES PERCENT AUTO 8 % (4-13); Mean Corpuscular HGB 30.2 pg (26.0-34.0); Mean Corpuscular HGB Conc 32.3 g/dL (31.5-36.5); Mean Corpuscular Volume 94 fL (80-100); Mean Platelet Volume 11.9 fL (9.1-12.4); NEUTROPHILS ABSOLUTE AUTO 7.74 K/mm3 (1.96-9.15); NEUTROPHILS PERCENT AUTO 77 % (41-73); Platelet Count 209 K/mm3 (150-400); RDW Coefficient Variation 14.6 % (11.7-14.2); RDW Standard Deviation 50.1 fL (35.1-46.3); Red Blood Cell Count 5.16 M/mm3 (4.30-5.90); White Blood Cell Count 10.01 K/mm3 (4.00-11.30)
[2018-06-12 08:44] LABS: Albumin, Blood 3.3 g/dL (3.4-5.0); Albumin/Globulin Ratio 0.9 (0.8-1.8); Bilirubin, Total 0.7 mg/dL (0.1-1.0); Bun/Creatinine Ratio 21.8 (12.0-20.0); Calcium, Blood 8.8 mg/dL (8.5-10.1); Creatinine, Blood 1.7 mg/dL (0.60-1.20); Globulin, Blood 3.8 g/dL (2.2-4.0); Potassium, Blood 4.1 mmol/L (3.5-5.5); Total Protein, Blood 7.1 g/dL (6.4-8.2)
--- NOTE | 2018-06-12 16:02 | NUR ---
SHIFT SUMMARY THEN PATIENT PRESENTED THIS SHIFT WITH VITALS WNL, A&O X3 AND WITH LUNGS SOUNDS THAT WERE WHEEZEY THROUGHOUT. THE PATIENT CONSENTED TO BREATHING TREATMENTS TODAY AND HAS HAD TWO THIS SHIFT. THE PATIENT HAD HIS LYLES REMOVED PER ORDER FROM HIS DOCTOR. THE PATIENT'S SPOUSE HAS BEEN IN THE ROOM WITH THE PATIENT MOST OF THE SHIFT. THE PATIENT IS RESTING AT THIS TIME, WILL CONTINUE TO MONITOR.
[2018-06-13 05:14] LABS: BASOPHILS ABSOLUTE AUTO 0.04 K/mm3 (0.00-0.23); BASOPHILS PERCENT AUTO 0 % (0-2); EOSINOPHILS ABSOLUTE AUTO 0.01 K/mm3 (0.00-0.68); EOSINOPHILS PERCENT AUTO 0 % (0-6); Hematocrit 45.1 % (37.0-53.0); Hemoglobin 14.9 g/dL (13.5-17.5); IMMATURE GRAN ABSOLUTE AUTO 0.35 K/mm3 (0.00-0.10); IMMATURE GRAN PERCENT AUTO 3 % (0-1); LYMPHOCYTES ABSOLUTE AUTO 1.01 K/mm3 (0.84-5.20); LYMPHOCYTES PERCENT AUTO 8 % (21-46); MONOCYTES ABSOLUTE AUTO 0.97 K/mm3 (0.16-1.47); MONOCYTES PERCENT AUTO 8 % (4-13); Mean Corpuscular HGB 30.1 pg (26.0-34.0); Mean Platelet Volume 11.8 fL (9.1-12.4); NEUTROPHILS ABSOLUTE AUTO 10.47 K/mm3 (1.96-9.15); NEUTROPHILS PERCENT AUTO 82 % (41-73); Platelet Count 199 K/mm3 (150-400); RDW Coefficient Variation 14.7 % (11.7-14.2); RDW Standard Deviation 49.1 fL (35.1-46.3); Red Blood Cell Count 4.95 M/mm3 (4.30-5.90); White Blood Cell Count 12.85 K/mm3 (4.00-11.30)
[2018-06-13 05:20] LABS: Mean Corpuscular Volume 91 fL (80-100)
[2018-06-13 05:44] LABS: Albumin, Blood 3.2 g/dL (3.4-5.0); Albumin/Globulin Ratio 0.9 (0.8-1.8); Bilirubin, Total 0.6 mg/dL (0.1-1.0); Bun/Creatinine Ratio 22.6 (12.0-20.0); Calcium, Blood 8.1 mg/dL (8.5-10.1); Creatinine, Blood 1.99 mg/dL (0.60-1.20); Globulin, Blood 3.7 g/dL (2.2-4.0); Potassium, Blood 4.2 mmol/L (3.5-5.5); Total Protein, Blood 6.9 g/dL (6.4-8.2)
[2018-06-13] MEDS ORDERED: Augmentin 875-1 EACH PO (14:22)
[2018-06-13] MEDS ORDERED: PRED10 PO (14:26)
[2018-06-13] MEDS ORDERED: NICO21TP PO (14:27)
[2018-06-13] MEDS ORDERED: Florastor250 MG PO (14:29)
[2018-06-13] MEDS ORDERED: ONDA4ODT PO (14:29)
--- NOTE | 2018-06-13 15:18 | NUR ---
PATIENT DISCHARDE THE PATIENT WAS DISCHARGED HOME WITH HIS SON AFTER DISCHARGE INSTRUCTIONS WERE GIVEN TO THE PATIENT. THE PATIENT WAS INSTRUCTED TO FISHER HIS PRESCRIPTIONS AT -[facility] ORDERED AND TO FOLLOW UP WITH HIS PCP WITHIN ONE WEEK. THE PATIENT'S SON TOOK THE PATIENT HOME. THE PATIENT LEFT THE HOSPITAL WITH OUT CONCERN OR COMPLAINT.
== END 2018-06-13 15:15 | disposition home or self-care (01) | DRG 872 ==
LOC: ER 11:14 → ICUE 14:19 → PCU 14:19 → ICUE 16:40 → MEDS 06-12 04:56 → ENPENDDIS 06-13 14:21 → MEDS 06-13 15:15
PROVIDERS: Emergency Medicine; Family Medicine; Internal Medicine Pulmonary Disease; Student in an Organized Health Care Education/Training Program; ADMIT Internal Medicine
PROC: 3E033XZ Introduction of Vasopressor into Peripheral Vein, Percutaneous Approach (ICD-10-PCS; principal; 2018-06-08)
DX: A41.9 Sepsis, unspecified organism (principal); N17.9 Acute kidney failure, unspecified; R57.9 Shock, unspecified; K43.0 Incisional hernia with obstruction, without gangrene; F10.239 Alcohol dependence with withdrawal, unspecified; F10.27 Alcohol dependence with alcohol-induced persisting dementia; I50.22 Chronic systolic (congestive) heart failure; E66.01 Morbid (severe) obesity due to excess calories; F17.210 Nicotine dependence, cigarettes, uncomplicated; J43.9 Emphysema, unspecified; R65.20 Severe sepsis without septic shock; G89.29 Other chronic pain; F90.9 Attention-deficit hyperactivity disorder, unspecified type; E86.0 Dehydration; G47.30 Sleep apnea, unspecified; Z79.82 Long term (current) use of aspirin; E87.5 Hyperkalemia; Z78.1 Physical restraint status; I11.0 Hypertensive heart disease with heart failure
CPT/HCPCS: 36415; 36569; 36600; 51702; 71045; 74018; 74176; 80048; 80053; 80069; 81001; 82803; 83605; 83690; 83735; 83880; 84484; 85025; 87040; 93005; 93010; 94640; 96361-59; 96365-59; 96375-59; 99285-25; A9270; C1751; C9113; J0360; J1630; J1650; J2060; J2405; J2543; J2920; J7030; J7040; J7050; J7060

== ENCOUNTER 2018-08-03 17:51 | Inpatient (IN) | payer MEDICARE, OTHER ==
[~2018-08-03] VITALS: Ht 180.3 cm; Wt 127.0 kg
[~2018-08-03 17:51] MED LIST changes: +Augmentin 875-1 EACH PO; +CORTISONE60 GM TOP; +ENTRESTO 24 MG1 EACH PO; +Ferrous Sulfat325 MG PO; +Florastor250 MG PO; +GUAI600T33 PO; +LO-DOSE ASPIRIN81 MG PO; +METHYLPHENIDATE PO; +NICO21TP PO; +ONDA4ODT PO; +POTCHL10ER PO; +PRAV20 PO; +PRED10 PO; +PREG100 PO; +SPIR25 PO
[2018-08-03 18:40] LABS: Hematocrit 44.6 % (37.0-53.0); Hemoglobin 14.3 g/dL (13.5-17.5); Mean Corpuscular HGB 30.8 pg (26.0-34.0); Mean Corpuscular HGB Conc 32.1 g/dL (31.5-36.5); Mean Corpuscular Volume 96 fL (80-100); Mean Platelet Volume 12.2 fL (9.1-12.4); Platelet Count 211 K/mm3 (150-400); RDW Coefficient Variation 15.1 % (11.7-14.2); RDW Standard Deviation 53.7 fL (35.1-46.3); Red Blood Cell Count 4.65 M/mm3 (4.30-5.90)
[2018-08-03 18:55] LABS: International Normalized Ratio 0.92; Prothrombin Time Results 9.8 Sec (9.7-11.5)
[2018-08-03 19:27] LABS: BAND PERCENT MAN 11 % (0-8); BASOPHILS PERCENT MAN 0 % (0-2); EOSINOPHILS ABSOLUTE MAN 0.25 K/mm3 (0.00-0.68); EOSINOPHILS PERCENT MAN 3 % (0-6); LYMPHOCYTES ABSOLUTE MAN 0.16 K/mm3 (0.84-5.20); LYMPHOCYTES PERCENT MAN 2 % (21-46); MONOCYTES ABSOLUTE MAN 0.25 K/mm3 (0.16-1.47); MONOCYTES PERCENT MAN 3 % (4-13); NEUTROPHILS ABSOLUTE MAN 7.72 K/mm3 (1.96-9.15); SEG NEUTROPHILS PERCENT MAN 81 % (41-73); TOTAL CELLS COUNTED 100
[2018-08-03 19:46] LABS: Albumin, Blood 3.4 g/dL (3.4-5.0); Albumin/Globulin Ratio 0.9 (0.8-1.8); Bilirubin, Total 0.5 mg/dL (0.1-1.0); Bun/Creatinine Ratio 17.6 (12.0-20.0); Calcium, Blood 8.2 mg/dL (8.5-10.1); Creatinine, Blood 2.38 mg/dL (0.60-1.20); Globulin, Blood 3.6 g/dL (2.2-4.0); Potassium, Blood 4.1 mmol/L (3.5-5.5)
[2018-08-03 21:05] LABS: Source, Urine Clean Catch
[2018-08-03 21:09] LABS: Blood, Urine Neg (Neg); Glucose Qualitative, Urine Neg (Neg); Ketones, Urine 1+ (Neg); Leukocyte Esterase, Urine 1+ (Neg); Nitrite, Urine Neg (Neg); Protein, Urine 1+ (Neg); Urobilinogen, Urine 1+ (Normal)
[2018-08-03 21:19] LABS: Appearance, Urine Clear (Clear); Bilirubin, Urine 1+ (Neg); Color, Urine Yellow (P-Yellow)
[2018-08-03 21:24] LABS: White Blood Cells, Urine 0-2 /hpf (0-5)
[2018-08-03 21:26] LABS: Bacteria Mod /hpf; Mucus Light (0-Heavy); Red Blood Cells, Urine Rare /hpf (0-2); Squamous Epithelial Cells Few /hpf (Few)
[2018-08-03] MEDS ORDERED: Trazodone HCl300 MG PO (22:15)
--- NOTE | 2018-08-04 00:32 | NUR ---
2350 PT ADMITTED TO ROOM 356 PER CART FROM ER. PTS BLOOD PRESSURE UPON ADMISSION 85/59 (LEFT ARM). PT IS VERY SLEEPY AND HAVING DIFFICULTY OPENING EYES, ABLE TO FOLLOW VERY SIMPLE VERBAL COMMANDS. PTS O2 SAT 84% AND PATIENT STARTED ON O2 AT 2L/M PER NASAL CANNULA WITH NEW SAT 91%.
--- NOTE | 2018-08-04 00:54 | NUR ---
PT BP 79/56, HR 140, VERY LETHARGIC, DR RIVERA NOTIFIED WITH ORDERS TO GIVE .9NS LITER BOLUS NOW. MD AWARE OF PRIOR BOLUS GIVEN.
[2018-08-04 00:59] LABS: U Amphetamine Screen DETECTED; U Barbituate Screen Not Detected; U Benzodiazapine Screen Not Detected; U Buprenorphine Screen Not Detected; U Cannabinoids Screen Not Detected; U Cocaine Screen Not Detected; U Methadone Screen Not Detected; U Methamphetamine Screen DETECTED; U Opiates Screen DETECTED; U Oxycodone Screen Not Detected; U Phencyclidine Screen DETECTED; U Propoxyphene Screen Not Detected
[2018-08-04 01:28] LABS: PCO2 Arterial 47.9 mmHg (35-45); PO2 Arterial 77.9 mmHg (80-100); pH Blood Arterial 7.34 (7.35-7.45)
--- NOTE | 2018-08-04 02:09 | NUR ---
0115 RAPID RESPONSE TEAM CALLED. 0120 NARCAN 0.2MG IVP GIVEN BY MARCIA BEAVERS RN 0130 DR RIVERA CALLED AND ADVISED LOW BP, TACHYCARDIA, LETHARGY WITH ORDERS TRANSFER ICU RENAN. 0140 PT MOVED TO ICU RM 2, ICU NURSE WILL CONTACT PATIENTS .
[2018-08-04 02:21] LABS: Hematocrit 38.5 % (37.0-53.0); Hemoglobin 12.2 g/dL (13.5-17.5); Mean Corpuscular HGB Conc 31.7 g/dL (31.5-36.5); Mean Corpuscular Volume 95 fL (80-100); Mean Platelet Volume 12.5 fL (9.1-12.4); Platelet Count 189 K/mm3 (150-400); RDW Coefficient Variation 15.2 % (11.7-14.2); RDW Standard Deviation 52.8 fL (35.1-46.3); Red Blood Cell Count 4.07 M/mm3 (4.30-5.90); White Blood Cell Count 6.28 K/mm3 (4.00-11.30)
[2018-08-04 02:38] LABS: Bun/Creatinine Ratio 19.9 (12.0-20.0); Calcium, Blood 7.3 mg/dL (8.5-10.1); Creatinine, Blood 2.46 mg/dL (0.60-1.20); Magnesium, Blood 1.6 mg/dL (1.6-2.4); Potassium, Blood 4.6 mmol/L (3.5-5.5)
[2018-08-04 02:40] LABS: BAND PERCENT MAN 45 % (0-8); BASOPHILS PERCENT MAN 0 % (0-2); EOSINOPHILS ABSOLUTE MAN 0.12 K/mm3 (0.00-0.68); EOSINOPHILS PERCENT MAN 2 % (0-6); LYMPHOCYTES ABSOLUTE MAN 0.31 K/mm3 (0.84-5.20); LYMPHOCYTES PERCENT MAN 5 % (21-46); MONOCYTES ABSOLUTE MAN 0.37 K/mm3 (0.16-1.47); MONOCYTES PERCENT MAN 6 % (4-13); NEUTROPHILS ABSOLUTE MAN 5.46 K/mm3 (1.96-9.15); SEG NEUTROPHILS PERCENT MAN 42 % (41-73); TOTAL CELLS COUNTED 100
--- NOTE | 2018-08-04 03:28 | NUR ---
PT TO ICU 2 FROM MEDICAL FLOOR AT 0150. PT WAS A RAPID RESPONSE WHO PRESENTED WITH AMS, HYPOTENSION, TACHYCARDIA, PINPOINT PUPILS AND INCREASING O2 NEEDS. PT RECEIVED 0.2 NARCAN AND 3L TOTAL NS BOLUS. MOST RECENT BLOOD PRESSURE 97/57 AND HR 106. PT HAS FIDGETY UNCONTROLLED MOVEMENTS OF HIS BODY. ANSWERS QUESTIONS SLOWLY, MUMBLING AND WITHOUT OPENING HIS EYES. PT OFTEN ANSWERS "I DON'T KNOW". PT REPORTS RLQ PAIN WITH PALPATION, HYPOACTIVE BT. PT REPORTS THAT HE CAME TO ER AFTER EXPERIENCING NAUSEA AND INCONTINENCE OF BOWEL. CURRENTLY ON 3L NC TO MAINTAIN SATS OVER 90. PT IS HOSTILE AND UNCOOPERATIVE WITH CARE AT THIS TIME. PT REFUSED TO LET [employer]ULT [employer] DRAW PROTHROMBIN LAB THIS AM DESPITE RECEIVING AN EXPLANATION TO WHY LABS ARE NECESSARY. PLEASE SEE SHIFT ASSESSMENT. PT CURRENTLY SLEEPING WITH NS @75 ML/HR. WILL CONTINUE TO MONITOR AND CONSULT HOSPITALIST NEEDED.
--- NOTE | 2018-08-04 04:44 | NUR ---
SPOKE WITH HOSPITALIST REGARDING PT'S CONTINUED HYPOTENSION. DR. RIVERA ORDERED TO CONTINUE TO MONITOR, NO INTERVENTIONS NEEDED.
--- NOTE | 2018-08-04 06:05 | NUR ---
SHIFT SUMMARY NO CHANGES SINCE PT TRANSFER TO ICU. PT SLEEPING. PERIODS OF HYPOTENSION. NS@75 ML/HR. 3L NC TO KEEP O2>90%. SEE PREVIOUS SHIFT NOTES. WILL REPORT TO DAYSHIFT NURSE.
--- NOTE | 2018-08-04 09:59 | NUR ---
0730: CARE ASSUMED, PT SLEEPING, VSS AT THIS TIME. NO AGITATION OR RESTLESSNESS NOTED. 0810: ASSESSMENT COMPLETE, AT BEDSIDE TO ASSESS. BP SLIGHTLY HYPOTENSIVE, SPO2 > 95% ON 2L/NC. PT REPORTS MILD DIFFUSE ABDOMINAL PAIN UPON PALPATION, DENIES NAUSEA. UMBILICAL HERNIA NOTED, BT PRESENT IN UMBILICUS. LS CLEAR BUT DIM IN BASES, HRR. PT DROWSY, WAKES UP DURING ASSESSMENT, ANSWERS SOME QUESTIONS APPROPRIATELY BUT IS DIFFICULT TO UNDERSTAND DUE TO MUMBLING. SOUMYA 2MM, PT SEEMS CONFUSED ABOUT PLACE/SITUATION, IRRITABLE. PT REORIENTED, IS ASKING FOR BUT DENIES OTHER NEEDS. 0850: ABD XRAY COMPLETE, PT REFUSING LAB DRAW. ATTENDS CHANGED, BEDBATH GIVEN. 1030: ECHO COMPLETED, PT'S S.O. AT BEDSIDE. VSS, PT REMAINS DROWSY, SPEECH IS CLEARING. PT CONTINUES TO FOLLOW COMMANDS BUT IS IRRITABLE, DENIES NEEDS.
--- NOTE | 2018-08-04 11:01 | NUR ---
1045: PT AGREES TO LAB DRAW, SPECIMEN OBTAINED. VSS, PT REMAINS DROWSY. APPROPRIATE AT THIS TIME.
[2018-08-04 11:49] LABS: International Normalized Ratio 0.99; Prothrombin Time Results 10.5 Sec (9.7-11.5)
--- NOTE | 2018-08-04 12:24 | NUR ---
PT SITTING UP IN BED WATCHING TV, VSS. LS DIM BUT CLEAR, NO WHEEZES NOTED, OCCASIONAL LOOSE COUGH, PT SWALLOWING SPUTUM. PT ALERT AND ORIENTED, HARD OF HEARING, FORGETFUL BUT APPROPRIATE. WOUND VAC IN PLACE, DRESSING REMAINS INTACT WITH A GOOD SEAL, NO DRAINAGE NOTED IN VAC CANISTER. WOUND VAC SETTINGS CHECKED, CONTINUOUS VAC ON. PT REFUSING ORAL AND AM CARES. LUNCH TRAY GIVEN.
--- NOTE | 2018-08-04 12:36 | NUR ---
1200: REASSESSMENT COMPLETED, VSS, NO CHANGES NOTED. PT REMAINS DROWSY, WAKES EASILY WHEN SPOKEN TO, THEN FALLS BACK ASLEEP. PT REPOSITIONED SELF WITH VERBAL CUES, ANSWERS QUESTIONS APPROPRIATELY AND FOLLOWS DIRECTIONS, REMAINS IRRITABLE. QUICKLY FALLS BACK ASLEEP AFTER CARES COMPLETED. SCDS ON, ATTENDS DRY.
--- NOTE | 2018-08-04 14:27 | NUR ---
PT CONTINUES TO SLEEP, VSS, NO CHANGES NOTED. PT DENIES ABD PAIN AND NAUSEA, THEN GOES BACK TO SLEEP.
[2018-08-04 16:18] LABS: Bun/Creatinine Ratio 22.8 (12.0-20.0); Calcium, Blood 7.8 mg/dL (8.5-10.1); Creatinine, Blood 1.8 mg/dL (0.60-1.20)
--- NOTE | 2018-08-04 16:47 | NUR ---
1615: PT REASSESSED, REMAINS VERY DROWSY BUT WHEN WOKEN, IS PLEASANT AND COOPERATIVE. MEDICATION ADMINISTERED PER ORDERS, PT REPOSITIONED. SON AT BEDSIDE, PLAN OF CARE AND TEST RESULTS DISCUSSED. PT GIVEN APPLE JUICE, TOLERATES THIN LIQUIDS AND ORAL MEDS WELL, DENIES NAUSEA OR ABDOMINAL PAIN. VSS.
--- NOTE | 2018-08-04 17:57 | NUR ---
ATTENDS CHANGED, SPO2 96% 1L/NC, PT NOW ON RA. VSS, PT REMAINS DROWSY BUT WAKES AND ACTS APPROPRIATE. ASSISTED WITH LIQUIDS, SWALLOWING WITHOUT DIFFICULTY.
--- NOTE | 2018-08-04 18:49 | NUR ---
1840: PT ASSISTED TO EAT SOME OF HIS DINNER, REMAINS DROWSY BUT SWALLOWS WITHOUT DIFFICULTY, SPEECH IS CLEAR. SPO2 86% ON RA, 2L/NC REPLACED, SATS RECOVERED QUICKLY TO MID 90'S. S.O. AT BEDSIDE, PT AND S.O. ADAMENT THAT PT IS NOT USING ANY ILLICIT DRUGS OR PRESCRIBED NARCOTICS. REPORT TO KARTHIK ARELLANO, PT TO ROOM 357 AT THIS TIME, VSS, PT DENIES NAUSEA OR ABD PAIN AFTER PO INTAKE. ABD PAIN ONLY PRESENT WITH PALPATION.
[2018-08-05 04:54] LABS: BASOPHILS ABSOLUTE AUTO 0.02 K/mm3 (0.00-0.23); BASOPHILS PERCENT AUTO 0 % (0-2); EOSINOPHILS ABSOLUTE AUTO 0.27 K/mm3 (0.00-0.68); EOSINOPHILS PERCENT AUTO 5 % (0-6); Hemoglobin 11.9 g/dL (13.5-17.5); IMMATURE GRAN ABSOLUTE AUTO 0.03 K/mm3 (0.00-0.10); IMMATURE GRAN PERCENT AUTO 1 % (0-1); LYMPHOCYTES ABSOLUTE AUTO 0.85 K/mm3 (0.84-5.20); LYMPHOCYTES PERCENT AUTO 15 % (21-46); MONOCYTES ABSOLUTE AUTO 0.62 K/mm3 (0.16-1.47); MONOCYTES PERCENT AUTO 11 % (4-13); Mean Corpuscular HGB 30.1 pg (26.0-34.0); Mean Corpuscular HGB Conc 31.3 g/dL (31.5-36.5); Mean Corpuscular Volume 96 fL (80-100); Mean Platelet Volume 12.3 fL (9.1-12.4); NEUTROPHILS ABSOLUTE AUTO 3.91 K/mm3 (1.96-9.15); NEUTROPHILS PERCENT AUTO 69 % (41-73); Platelet Count 177 K/mm3 (150-400); RDW Coefficient Variation 15.1 % (11.7-14.2); RDW Standard Deviation 53.5 fL (35.1-46.3); Red Blood Cell Count 3.95 M/mm3 (4.30-5.90)
[2018-08-05 05:21] LABS: Albumin, Blood 2.6 g/dL (3.4-5.0); Albumin/Globulin Ratio 0.8 (0.8-1.8); Bilirubin, Total 0.4 mg/dL (0.1-1.0); Bun/Creatinine Ratio 22.8 (12.0-20.0); Calcium, Blood 8.1 mg/dL (8.5-10.1); Creatinine, Blood 1.27 mg/dL (0.60-1.20); Globulin, Blood 3.3 g/dL (2.2-4.0); Total Protein, Blood 5.9 g/dL (6.4-8.2)
--- NOTE | 2018-08-05 05:31 | NUR ---
SHIFT SUMMARY PATIENT IS ALERT AND ORIENTED, YET FORGETFUL. PATIENT SLEPT WELL THROUGHOUT THE NIGHT. PT DID STAND AT SIDE OF BED TO HAVE BRIEF CHANGED. PT IS UNSTEADY, ROCKS BACK AND FORTH EVEN WITH WALKER. NO NAUSEA OR VOMITING THROUGHOUT THE NIGHT. RESPIRATIONS EQUAL AND UNLABORED, O2 SATS ABOVE 90%. NO AGITATION NOTED THROUGHOUT THE NIGHT. PATIENT REQUESTED A SLEEPING PILL, HOWEVER PATIENT WAS DROWSY AND APPEARED TO BE SLEEPING WELL WHEN STAFF ENTERED THE ROOM. PATIENT WOULD BE SNORING. VITAL SIGNS STABLE. PT DID USE CALL LIGHT APPROPRIATELY, BED ALARM WAS ON FOR SAFETY. NO ACUTE CHANGES NOTED THROUGHOUT THE NIGHT. LABS THIS AM APPEAR TO BE IMPROVING.
--- NOTE | 2018-08-05 13:03 | NUR ---
CONTACTED PT'S FOR TRANSPORT HOME
== END 2018-08-05 14:22 | disposition home or self-care (01) | DRG 394 ==
LOC: ER 17:51 → MEDS 22:43 → ICUE 22:43 → MEDS 23:46 → ER 23:46 → ICUE 23:46 → MEDS 23:52 → ICUE 08-04 01:46 → MEDS 08-04 18:38
PROVIDERS: Emergency Medicine; Internal Medicine; Nurse Practitioner Acute Care; ADMIT Internal Medicine
DX: K42.0 Umbilical hernia with obstruction, without gangrene (principal); N17.9 Acute kidney failure, unspecified; I42.9 Cardiomyopathy, unspecified; I50.22 Chronic systolic (congestive) heart failure; I13.0 Hypertensive heart and chronic kidney disease with heart failure and stage 1 through stage 4 chronic kidney disease, or unspecified chronic kidney disease; E87.2 Acidosis; N18.9 Chronic kidney disease, unspecified; F19.10 Other psychoactive substance abuse, uncomplicated; J44.9 Chronic obstructive pulmonary disease, unspecified; E03.9 Hypothyroidism, unspecified; F17.210 Nicotine dependence, cigarettes, uncomplicated; E66.9 Obesity, unspecified; Z79.52 Long term (current) use of systemic steroids; Z79.899 Other long term (current) drug therapy; Z68.39 Body mass index [BMI] 39.0-39.9, adult
CPT/HCPCS: 36415; 36600; 74018; 74176; 80048; 80053; 81001; 82803; 82947; 83605; 83690; 83735; 83880; 84100; 84484; 85025; 85610; 87040; 87086; 93005; 93010; 93306; 96361; 96374; 96375; 99285-25; C9113; J1170; J2310; J2405; J7030

== ENCOUNTER 2019-01-29 01:40 | Inpatient (IN) | payer MEDICARE, OTHER ==
[~2019-01-29] VITALS: Ht 180.3 cm; Wt 117.9 kg
[2019-01-29 02:01] LABS: BASOPHILS ABSOLUTE AUTO 0.05 K/mm3 (0.00-0.23); BASOPHILS PERCENT AUTO 0 % (0-2); EOSINOPHILS PERCENT AUTO 1 % (0-6); Hematocrit 57.4 % (37.0-53.0); Hemoglobin 18.1 g/dL (13.5-17.5); IMMATURE GRAN ABSOLUTE AUTO 0.05 K/mm3 (0.00-0.10); IMMATURE GRAN PERCENT AUTO 0 % (0-1); LYMPHOCYTES ABSOLUTE AUTO 0.32 K/mm3 (0.84-5.20); LYMPHOCYTES PERCENT AUTO 3 % (21-46); MONOCYTES ABSOLUTE AUTO 0.12 K/mm3 (0.16-1.47); MONOCYTES PERCENT AUTO 1 % (4-13); Mean Corpuscular HGB 29.2 pg (26.0-34.0); Mean Corpuscular HGB Conc 31.5 g/dL (31.5-36.5); Mean Corpuscular Volume 93 fL (80-100); Mean Platelet Volume 11.9 fL (9.1-12.4); NEUTROPHILS ABSOLUTE AUTO 10.88 K/mm3 (1.96-9.15); NEUTROPHILS PERCENT AUTO 95 % (41-73); Platelet Count 256 K/mm3 (150-400); RDW Coefficient Variation 14.8 % (11.7-14.2); RDW Standard Deviation 50.6 fL (35.1-46.3); White Blood Cell Count 11.52 K/mm3 (4.00-11.30)
[2019-01-29] MEDS ORDERED: Carbidopa-Levo1 EAC2 PO (02:09)
[2019-01-29] MEDS ORDERED: Carvedilol6.25 MG PO (02:09)
[2019-01-29] MEDS ORDERED: Aspirin EC81 MG PO (02:09)
[2019-01-29] MEDS ORDERED: Cymbalta60 MG PO (02:11)
[2019-01-29] MEDS ORDERED: FURO40 PO (02:11)
[2019-01-29] MEDS ORDERED: Synthroid200 MCG PO (02:12)
[2019-01-29] MEDS ORDERED: LACT10SY PO (02:12)
[2019-01-29] MEDS ORDERED: METPHE20CR PO ×2 (02:13)
[2019-01-29] MEDS ORDERED: GUAI600T33 PO (02:13)
[2019-01-29] MEDS ORDERED: OMEPRAZOLE20 MG PO (02:14)
[2019-01-29] MEDS ORDERED: POTA10T PO (02:14)
[2019-01-29] MEDS ORDERED: NAPR500 PO (02:14)
[2019-01-29] MEDS ORDERED: PREG100 PO (02:15)
[2019-01-29] MEDS ORDERED: ENTRESTO 24 MG1 EAC1 PO (02:15)
[2019-01-29] MEDS ORDERED: PRAV20 PO (02:15)
[2019-01-29] MEDS ORDERED: SPIR25 PO (02:16)
[2019-01-29] MEDS ORDERED: Trazodone HCl300 MG PO (02:16)
[2019-01-29 02:18] LABS: Alanine Aminotransfer (ALT/SGP 20 U/L (12-78); Albumin, Blood 4.3 g/dL (3.4-5.0); Albumin/Globulin Ratio 0.9 (0.8-1.8); Alk Phos 121 U/L (50-136); Anion Gap 10 mmol/L (6-16); Aspartate Aminotrans (AST/SGOT 21 U/L (12-37); BAND PERCENT MAN 35 % (0-8); BASOPHILS PERCENT MAN 0 % (0-2); Bilirubin, Total 0.9 mg/dL (0.1-1.0); Blood Urea Nitrogen 45 mg/dL (8-24); Bun/Creatinine Ratio 15.4 (12.0-20.0); CO2, Blood 24 mmol/L (21-32); Calcium, Blood 9.5 mg/dL (8.5-10.1); Chloride, Blood 104 mmol/L (98-108); Creatinine, Blood 2.93 mg/dL (0.60-1.20); EOSINOPHILS PERCENT MAN 0 % (0-6); Ethanol (Alcohol), Blood, Med <3 mg/dL; Globulin, Blood 4.7 g/dL (2.2-4.0); Glomerular Filtration Rate 23 (60-); Glucose, Blood 109 mg/dL (70-99); LYMPHOCYTES ABSOLUTE MAN 0.23 K/mm3 (0.84-5.20); LYMPHOCYTES PERCENT MAN 2 % (21-46); MONOCYTES PERCENT MAN 0 % (4-13); NEUTROPHILS ABSOLUTE MAN 11.28 K/mm3 (1.96-9.15); Potassium, Blood 4.8 mmol/L (3.5-5.5); SEG NEUTROPHILS PERCENT MAN 63 % (41-73); Salicylate 3.1 mg/dL (2.8-20.0); Sodium, Blood 138 mmol/L (136-145); TOTAL CELLS COUNTED 100; Troponin I <0.015 ng/mL (0.000-0.040)
[2019-01-29 02:19] LABS: Acetaminophen, Random <2.0 ug/mL (10.0-30.0)
[2019-01-29 03:39] LABS: PCO2 Arterial 75.2 mmHg (35-45); PO2 Arterial 71.6 mmHg (80-100); pH Blood Arterial 7.07 (7.35-7.45)
--- NOTE | 2019-01-29 07:00 | NUR ---
ASSUMED CARE PT. INTUBATED, VENT SETINGS OF AC 16, 450, PEEP5, 100% DOES OCCASIONALLY GRIMACE WITH PAIN HOWEVER NOT FOLLOWING COMMANDS OR WITHDRAWING FROM PAIN. PT. CURRENTLY ON VERSED GTT FOR SEDATION AT 2MG/HR. PT HYPOTENSIVE WITH LEVOPHED INFUSING AT 25MCG/MIN, 2ND LITER BOLUS INFUSING. PT. HAS CENTRAL LINE TO RIGHT IJ, PLANS FOR VASOPRESSIN GTT INFUSION PT EXTREM COOL TO TOUCH, ABD SOFT WITH PALPATION, OG TO LIS WITH MAROON FLUID FROM OG TUBE. LYLES IN PLACE, SCANT AMOUNT OF URINE NOTED IN TUBING HOWEVER NOT ENOUGH URINE OUTPUT FOR SAMPLE COLLECTION. BILAT WRIST RESTRAINTS IN PLACE. DR. SILVER AT BEDSIDE.
--- NOTE | 2019-01-29 07:38 | NUR ---
PT ARRIVES TO ICU ROOM 7 FROM EMERGENCY ROOM VIA CT SCAN. PT ARRIVES WITH BLOOD PRESSURES WITH SYSTOLIC IN 60'S. PT VERY DIAPHORETIC AND MINIMALLY RESPONSIVE. 500 ML NORMAL SALINE BOLUS DONE. LEVOPHED WAS ON AND INCREASED TO 10 MCG'S. SUBSEQUENTLY HAS BEEN INCREASED TO 25 MCG'S. ADDED VASOPRESSIN. AND HAS HAD A TOTAL IN UNIT OF 2,OOO ML FLUID BOLUS. OGT HAS HAD 1475 BROWNISH [address]QUID. FOUL SMELLING. DR RIVERA HAS COME IN TO PLACE QUAD LUMEN CENTRAL LINE TO RIGHT IJ. LUNGS DIMINISHED IN BASES. CLEAR IN UPPER LOBES. INTUBATED. INITIALLY WITH PROPOFOL AT 10 MCG'S. HAS BEEN CHANGED TO VERSED DRIP SECONDARY TO VERY LOW BLOOD PRESSURES. PERCUSSION TO ABDOMEN DEMONSTRATES VERY DULL SOUND TO RIGHT LOWER ABDOMEN. REPORT GIVEN TO DR SILVER AND TO KARTHIK ARIZA. PT'S ARRIVES TO ROOM AND IS SPEAKING WITH KARTHIK ARIZA
[2019-01-29 07:58] LABS: Hemoglobin 16.4 g/dL (13.5-17.5); Mean Corpuscular HGB 28.7 pg (26.0-34.0); Mean Corpuscular HGB Conc 29.7 g/dL (31.5-36.5); NRBC ABSOLUTE 0.04 K/mm3 (0.00-0.02); NRBC Auto 0.4 /100 WBC (0.0-0.2); Platelet Count 180 K/mm3 (150-400); RDW Standard Deviation 53.5 fL (35.1-46.3); Red Blood Cell Count 5.71 M/mm3 (4.30-5.90); White Blood Cell Count 9.15 K/mm3 (4.00-11.30)
[2019-01-29 08:01] LABS: Hematocrit 55.3 % (37.0-53.0); Mean Corpuscular Volume 97 fL (80-100); Mean Platelet Volume 13.2 fL (9.1-12.4)
--- NOTE | 2019-01-29 08:12 | NUR ---
DR. RIVAS AT BEDSIDE AT BEDSIDE, UPDATED ON CONDITION AND PLAN OF CARE. PLANS FOR ART LINE AT THIS TIME. LEVOPHED GTT INCREASED TO 30MCG/MIN, 3RD LITER BOLUSED IN PER DR. RIVAS, VASOPRESSIN INFUSING. DR. ROBERTSON AT BEDSIDE TO ASSESS PT. NO PLANS FOR SURGERY AT THIS TIME. AWAITING GI. VENT SETTINGS INCREASED TO AC 24.
--- NOTE | 2019-01-29 09:18 | NUR ---
ARTLINE PLACED TO LEFT GROIN BY DR. RIVAS. PT. TOLERATED PROCEDURE WELL, PT DID START TO SHAKE HEAD DURING PROCEDURE BUT CALMED WITH REASSURANCE.PT. REMAINS ON 2MG/HR OF VERSED. 1ST UNIT OF PRBCS STARTED. PT. REMAINS ON 30MCG/KG/MIN OF LEVOPHED AND VASOPRESSIN. GOOD WAVEFORM POST ARTLINE PLACEMENT, LINE ZEROED AND SECURED. DR. RIVAS OUT TO UPDATE PT .
[2019-01-29 09:58] LABS: PCO2 Arterial > 105 mmHg (35-45); pH Blood Arterial 6.86 (7.35-7.45)
--- NOTE | 2019-01-29 10:05 | NUR ---
REPEAT ABG RESULTS TO DR RIVAS RATE OF VENT AC TO BE INCREASED TO 30. 2 AMPS BICARB PUSH ORDERED STAT.
[2019-01-29 10:15] LABS: Albumin, Blood 2.6 g/dL (3.4-5.0); Albumin/Globulin Ratio 0.8 (0.8-1.8); Bun/Creatinine Ratio 14.5 (12.0-20.0); Creatinine, Blood 3.66 mg/dL (0.60-1.20); Globulin, Blood 3.4 g/dL (2.2-4.0); Potassium, Blood 5.3 mmol/L (3.5-5.5)
[2019-01-29 10:16] LABS: Calcium, Blood 7.2 mg/dL (8.5-10.1)
--- NOTE | 2019-01-29 10:52 | NUR ---
UPDATE SECOND UNIT OF PRBC STARTED. PT. REMAINS HYPOTENSIVE. PER DR. RIVAS EPI GTT STARTED AT 2MCG/MIN.
--- NOTE | 2019-01-29 11:05 | NUR ---
DR. WAY UPDATED ON PT CONDITION PLANS TO SEE PT THIS AFTERNOON WITH POSSIBLE ENDOSCOPY.
--- NOTE | 2019-01-29 11:40 | NUR ---
DR. RIVAS AT BEDSIDE PT. REMAINS HYPOTENSIVE, CONTINUING TO TITRATE UP EPI GTT CURRENTLY AT 5MCG/MIN. PER DR. RIVAS TITRATE UP TO MAX OF 15 MCG/MIN. LEVOPHED GTT REMAINS AT 30MCG, WITH VASOPRESSIN INFUSING. 1L BOLUS OF LR STARTED AND BICARB GTT TO BE ORDERED. FAMILY UPDATED ON PT. CONDITION. STILL NO URINE OUTPUT, DR. CELIS.
--- NOTE | 2019-01-29 12:04 | NUR ---
UPDATE FAMILY AND FRIENDS AT BEDSIDE. CONTINUE TO INCREASE PRESSORS PER DR. ORDER. LR BOLUS CONTINUES. PT REMAINS HYPOTENSIVE VIA ART LINE- SEE VS FLOW SHEET. DIFFICULTY OBTAINING SPO2- SITE ROTATED FREQUENTLY HOWEVER UNABLE TO OBTAIN PERIPHERAL SPO2 READING. PT. FOOT COOL AND MOTTLED, HANDS COOL TO TOUCH. OG TUBE OUTPUT HAS SLOWED, BILE NOW NOTED IN TUBING.
--- NOTE | 2019-01-29 12:37 | NUR ---
SPOKE TO DONOR BANK THEY ARE GOING TO SIGN OFF FOR NOW ON ORGAN DONATION HOWEVER WOULD LIKED CALL WITH CARDI[facility] FOR POSSIBLE TISSUE AND EYE DONATION.
[2019-01-29 14:38] LABS: PO2 Arterial 72.2 mmHg (80-100)
[2019-01-29 14:39] LABS: pH Blood Arterial 6.93 (7.35-7.45)
[2019-01-29 14:40] LABS: PCO2 Arterial 90.6 mmHg (35-45)
--- NOTE | 2019-01-29 14:44 | NUR ---
UPDATE PT. TRANSITIONED TO DOUBLE STRENGTH LEVOPHED AND IS NOW ON 20MCG/MIN OF DOUBLE STRENGTH LEVO, ALONG WITH EPI AT 15MCG/MIN AND VASOPRESSIN. PT. REMAINS HYPOTENSIVE. REPEAT ABG COMPLETED, RESULTS DISCUSSED WITH DR. RIVAS. PT. FAMILY REMAINS AT BEDSIDE. CONTINUE TO HAVE DIFFICULTY OBTAINING ACCURATE SPO2 READING, MULTIPLE LOCATIONS ATTEMPTED. PT. NOTED TO HAVE AGONAL RESP. ON VENT. AWAITING LAB RESULTS
[2019-01-29 15:07] LABS: Calcium, Blood 6.6 mg/dL (8.5-10.1); Creatinine, Blood 3.87 mg/dL (0.60-1.20); Potassium, Blood 5.1 mmol/L (3.5-5.5)
--- NOTE | 2019-01-29 15:40 | NUR ---
COMFORT CARE PT CONTINUES TO BE HYPOTENSIVE, DESPITE EPI, LEVO, AND VASO GTT ALONG WIHT BICARB INFUSION. WITH NO URINE OUTPUT. IN TO TALK WITH FAMILY REGARDING PLAN OF CARE. FAMILY TEARFUL AT BEDSIDE HOWEVER AFTER LONG DISCUSSION FAMILY REQUESTED TO WITHDRAWL CARE AND MAKE PT COMFORT CARE. PER DR. RIVAS WHEN FAMILY IS READY COMFORT CARE AND EXUTBATE PT PER FAMILY REQUEST. FAMILY WAITING FOR ADDITIONAL FAMILY MEMBER TO ARRIVE PRIOR TO EXTUBATION.
--- NOTE | 2019-01-29 16:30 | NUR ---
TIME OF PT. FAMILY AT BEDSIDE REQUESTING WITHDRAWL OF CARE. MORPHINE ADMIN PRIOR TO EXTUBATION PER FAMILY REQUEST. ALL MEDICATIONS STOPPED AND PT EXTUBATED AT 1620, ASYSTOLE NOTED ON MONITOR. FAMILY AT BEDSIDE. DECLARED BY [place]NA ANGELES VIA AUSCLUTATION.TOD 1622. SPIRITUAL CARE AT BEDSIDE FOR SUPPORT. BELONGINGS SENT WITH FAMILY. FAMILY CHOSE OF [facility]. DOCTORS AND DONOR BANK NOTIFIED.
--- NOTE | 2019-01-29 18:46 | NUR ---
Initial spiritual care note: Present with family as decision being made to allow natural . Provided gentle counselor at law, facilitated reminising, and offered prayer. Present at TOD. Family tearful but appropriate. Affirmed obvious love and complimented them on their compassion. Pt passed peacefully thanks to excellent nursing. Family expressed appreciaition.
== END 2019-01-29 16:22 | DRG 871 ==
LOC: ER 01:40 → ICUW 04:45 → ICUE 04:45
PROVIDERS: Emergency Medicine; Hospitalist; Internal Medicine Critical Care Medicine; ADMIT Internal Medicine
PROC: 05HM33Z Insertion of Infusion Device into Right Internal Jugular Vein, Percutaneous Approach (ICD-10-PCS; principal; 2019-01-29)
PROC: B543ZZA Ultrasonography of Right Jugular Veins, Guidance (ICD-10-PCS; 2019-01-29)
PROC: 04HY32Z Insertion of Monitoring Device into Lower Artery, Percutaneous Approach (ICD-10-PCS; 2019-01-29)
PROC: 0DH673Z Insertion of Infusion Device into Stomach, Via Natural or Artificial Opening (ICD-10-PCS; 2019-01-29)
PROC: 0BH17EZ Insertion of Endotracheal Airway into Trachea, Via Natural or Artificial Opening (ICD-10-PCS; 2019-01-29)
PROC: 5A1935Z Respiratory Ventilation, Less than 24 Consecutive Hours (ICD-10-PCS; 2019-01-29)
DX: A41.9 Sepsis, unspecified organism (principal); R65.21 Severe sepsis with septic shock; J96.00 Acute respiratory failure, unspecified whether with hypoxia or hypercapnia; N17.9 Acute kidney failure, unspecified; I50.32 Chronic diastolic (congestive) heart failure; E87.4 Mixed disorder of acid-base balance; K46.0 Unspecified abdominal hernia with obstruction, without gangrene; I13.0 Hypertensive heart and chronic kidney disease with heart failure and stage 1 through stage 4 chronic kidney disease, or unspecified chronic kidney disease; K56.609 Unspecified intestinal obstruction, unspecified as to partial versus complete obstruction; Z51.5 Encounter for palliative care; E66.01 Morbid (severe) obesity due to excess calories; E03.9 Hypothyroidism, unspecified; J44.9 Chronic obstructive pulmonary disease, unspecified; N18.3 Chronic kidney disease, stage 3 (moderate); Z79.82 Long term (current) use of aspirin; Z79.899 Other long term (current) drug therapy; Z68.32 Body mass index [BMI] 32.0-32.9, adult
CPT/HCPCS: 31500; 31720; 36430; 36556; 36600; 36620; 51702; 70450; 71045; 74176; 80048; 80053; 82140; 82803; 83690; 84484; 85014; 85018; 85025; 85027; 86850; 86900; 86901; 86923; 93005; 93010; 94002; 94003; 96361-59; 96365-59; 96368; 96375-59; 99291-25; 99292; C1751; C9113; G0480; J0171; J0330; J0692; J2250; J2270; J2310; J2405; J2597; J2704; J7030; J7040; J7060; J7070; J7120; P9016